=== PATIENT | male | born 1970 | race Caucasian/White ===

== ENCOUNTER 2019-08-18 06:10 | Emergency (ER) | payer OTHER, MEDICARE ==
[~2019-08-18 06:10] MED LIST: ALPRAZOLAM0.5 M3 PO; AMLODIPINE BESY10 MG PO; ASPIRIN ADULT L81 M1 PO; AUGMENTIN 500500 MG PO; CYCLOBENZAPRINE10 MG PO; ESGIC 325 MG-5050 MG PO; FUROSEMIDE80 MG PO; HYDRALAZINE HYD50 MG PO; PROAIR HFA8.5 GM INH; TRAZODONE50 MG PO; VITAMIN D400 I1 PO
[2019-08-18] MEDS ORDERED: NORCO 5-325 TA1 EACH PO (08:26)
[2019-08-18] MEDS ORDERED: AMOXICILLIN500 M3 PO ×2 (08:26→08:35)
== END 2019-08-18 08:28 | disposition home or self-care (01) ==
LOC: ED 06:10
DX: K04.7 Periapical abscess without sinus (principal); I12.0 Hypertensive chronic kidney disease with stage 5 chronic kidney disease or end stage renal disease; N18.6 End stage renal disease; I25.10 Atherosclerotic heart disease of native coronary artery without angina pectoris; Z91.041 Radiographic dye allergy status; Z91.013 Allergy to seafood; Z79.82 Long term (current) use of aspirin; Z79.899 Other long term (current) drug therapy; Z99.2 Dependence on renal dialysis; Z87.891 Personal history of nicotine dependence